=== PATIENT | male | born 1985 | race Caucasian/White ===

== ENCOUNTER 2024-01-30 03:23 | Outpatient (CLI) | payer BC, SELFPAY ==
[2024-01-30 13:16] LABS: HCT 46.2 % (40.0-50.0); HGB 15.1 g/dL (13.5-17.5); MCHC 32.7 % (32.0-36.0); MCV 83 fL (80-95); MPV 10.8 fL (8.0-11.0); Platelet Count 247 10^3/uL (130-400); RDW 12.7 % (11.8-14.1); RDW-SD 38.3 fL; WBC 6.31 10^3/uL (4.4-10.8)
[2024-01-30 13:54] LABS: Anion Gap 9.6 mmol/L (3-11); BUN 16 mg/dL (7-18); CO2 30.4 mmol/L (21.0-32.0); CREATININE 1.1 mg/dL (0.70-1.30); Calcium 10.3 mg/dL (8.5-10.1); Calculated LDL 123 mg/dL (<100); Chloride 102 mmol/L (98-107); Cholesterol 177 mg/dL (<200); Estimated GFR 88.67 (mL/min/1.73m2); Glucose 214 mg/dL (74-106); HDL Cholesterol 45 mg/dL (40-60); Sodium 142 mmol/L (136-145); TSH (W/Ref FT4) 1.89 uIU/mL (0.36-3.74); Triglyceride 49 mg/dL (<150)
[2024-01-30 15:25] LABS: Hemoglobin A1C 6.4 % (<5.7)
[2024-01-30 23:32] LABS: Hep A Total Ab w Rflx IgM Negative (Negative)
[2024-01-30 23:35] LABS: HIV-1/2 Ag & Ab Screen Negative (Negative)
[2024-01-30 23:41] LABS: Hepatitis C Ab w Rflx HCV PCR Negative (Negative)
[2024-01-31 10:38] LABS: Syphilis Serology (RPR) Negative (Negative)
[2024-02-01 12:08] LABS: HSV Type 1 Ab, IgG Negative (Negative); HSV Type 2 Ab, IgG Negative (Negative)
== END 2024-01-30 03:24 | disposition home or self-care (01) ==
LOC: LBO 03:23
PROVIDERS: PCP Nurse Practitioner Family; Visit Provider Nurse Practitioner Family
DX: Z00.00 Encounter for general adult medical examination without abnormal findings (principal); F32.A Depression, unspecified; Z20.2 Contact with and (suspected) exposure to infections with a predominantly sexual mode of transmission
CPT/HCPCS: 36415; 80048; 80061; 85027; 86709; 86803; 87389; 83036; 84443; 86592; 86695; 86696

== ENCOUNTER 2024-11-10 12:13 | Outpatient (CLI) | payer BC, SELFPAY ==
[2024-11-10 10:52] LABS: ALT 44 U/L (16-63); AST 23 U/L (15-37); Albumin 4.1 g/dL (3.4-5.0); Alkaline Phosphatase 94 U/L (46-116); Anion Gap 6.5 mmol/L (3-11); BUN 16 mg/dL (7-18); Bilirubin, Total 0.7 mg/dL (0.2-1.0); CO2 33.5 mmol/L (21.0-32.0); Calcium 9.5 mg/dL (8.5-10.1); Chloride 101 mmol/L (98-107); Estimated GFR 112.11 (mL/min/1.73m2); Glucose 124 mg/dL (74-106); Potassium 3.9 mmol/L (3.5-5.1); Sodium 141 mmol/L (136-145); Total Protein 8.1 g/dL (6.4-8.2)
== END 2024-11-10 12:14 | disposition home or self-care (01) ==
LOC: LBO 12:13
PROVIDERS: PCP Nurse Practitioner Family; Visit Provider Nurse Practitioner Family
DX: E11.9 Type 2 diabetes mellitus without complications (principal)
CPT/HCPCS: 36415; 80053

== ENCOUNTER 2025-02-04 01:22 | Outpatient (CLI) | payer BC, SELFPAY ==
--- NOTE | 2025-02-04 06:45 | DI.RAD_ITS ---
Exam(s) XR WRIST RT COMPLETE EXAM: XR WRIST RT COMPLETE CLINICAL HISTORY: right wrist pain,M25.531. TECHNIQUE: 2D digital imaging was performed of the right wrist. Three views were obtained. PA, lateral and oblique views were obtained. COMPARISON: No exams were available for comparison FINDINGS: BONES: No acute fracture is present. No bony destructive lesion is seen. JOINTS: The carpal bones are normally aligned. SOFT TISSUE: Normal. IMPRESSION: Unremarkable radiographs of the right wrist. DATA REPOSITORY: RADIATION DOSE DELIVERED:
== END 2025-02-04 01:42 ==
LOC: DI 01:22
PROVIDERS: PCP Nurse Practitioner Family; Visit Provider Nurse Practitioner Family
DX: M25.531 Pain in right wrist (principal)
CPT/HCPCS: 73110